=== PATIENT | female | born 1970 | race Caucasian/White ===

== ENCOUNTER 2021-09-08 05:48 | Day surgery (SDC) | payer MEDICAID ==
[~2021-09-08] VITALS: Ht 167.6 cm; Wt 97.7 kg
[~2021-09-08 05:48] MED LIST: BENA20TA82 PO; HUM10VIA SQ; METF-1203 PO; PRAV10TA39 PO; famotidine 20mg tablet PO ONE; ringers solution, lacted 1,000 ML IV SCH
[2021-09-08 06:00] VITALS: BP 150/80
[2021-09-08] MEDS ORDERED: clindamycin-Cleocin 900mg/D5W 50 ML IV ONE (06:00)
[2021-09-08] MEDS ORDERED: BUPIVAcaine/PF 2.5mg/ml (0.25%) 10ml vial ONE ×2 (06:43→07:23)
[2021-09-08 07:00] LABS: BASOPHILS # (AUTO) 0.1 X10'3 (0-0.2); BASOPHILS % (AUTO) 0.8 % (0-1); EOSINOPHILS # (AUTO) 0.2 X10'3 (0-0.9); EOSINOPHILS % (AUTO) 2.4 % (0-6); LYMPHOCYTES # (AUTO) 4.1 X10'3 (1.1-4.8); LYMPHOCYTES % (AUTO) 49.6 % (21-51); MEAN CORPUSCULAR HEMOGLOBIN 29.7 PG (27.0-31.0); MEAN CORPUSCULAR HGB CONC 34.2 g/dL (33.0-36.5); MEAN CORPUSCULAR VOLUME 86.7 FL (78-98); MEAN PLATELET VOLUME 6.8 FL (7.4-10.4); MONOCYTES # (AUTO) 0.6 X10'3 (0-0.9); MONOCYTES % (AUTO) 7.2 % (2-12); NEUTROPHILS # (AUTO) 3.3 X10'3 (1.8-7.7); PRE OP HEMATOCRIT 34.5 % (35.0-45.0); PRE OP HEMOGLOBIN 11.8 g/dL (12.0-16.0); PRE OP PLATELET COUNT 428 X10'3 (140-440); RED BLOOD COUNT 3.98 X10'6 (4.20-5.60); RED CELL DISTRIBUTION WIDTH 13.6 % (11.5-14.5)
[2021-09-08 07:10] LABS: ALBUMIN 3.7 G/DL (3.4-5.0); ALKALINE PHOSPHATASE 60 IU/L (46-116); BLOOD UREA NITROGEN 14 MG/DL (7-18); BUN/CREATININE RATIO 18.9 (6.6-38.0); CALCIUM 9.2 MG/DL (8.5-10.1); CHLORIDE 103 MMOL/L (99-107); CREATININE 0.74 MG/DL (0.40-0.90); PRE OP ALT 31 U/L (30-65); PRE OP ANION GAP 11 (8-16); PRE OP AST 16 U/L (10-37); PRE OP BILIRUB, TOTAL 0.2 MG/DL (0.0-1.0); PRE OP GLUCOSE 99 MG/DL (70-104); PRE OP POTASSIUM 3.9 MMOL/L (3.4-5.1); PRE OP SODIUM 141 MMOL/L (135-145); TOTAL PROTEIN 7.3 G/DL (6.4-8.2); eGFR 82 ML/MIN
[2021-09-08] MEDS ORDERED: LIDOcaine 0.5% (5mg/ml) 50ml vial ONE ×2 (07:33→09:06)
[2021-09-08] MEDS ORDERED: fentaNYL/PF 50MCG/1 ML 2ML syringe ONE (08:34)
[2021-09-08] MEDS ORDERED: midazolam 1 mg/ML 2ml injection ONE (08:35)
[2021-09-08] MEDS ORDERED: propofol inj 20 ML IV ONE (09:06)
[2021-09-08 09:17] VITALS: BP 180/92
--- NOTE | 2021-09-08 09:17 | NUR ---
Received from OR via [facility] , accompanied by Anesthesiologist RAGHAVENDRA and report given by Anesthesiolgist. PATIENT WITH 20G PIV IN LEFT UE RUNNING LR AT 100. DENIES PAIN. PATIENT WITH BILATERAL WRIST DRESSINGS THAT ARE ON CDI. NO DRAINAGE PRESENT. PATIENT + CAP REFILL IN ALL FINGERS. Addendum: 09/08/21 at 0961 by Shakeel Weaver RN, RN Amended: Links added.
[2021-09-08] MEDS ORDERED: morphine 2 MG/ML inj. syringe IV PRN (09:25)
[2021-09-08] MEDS ORDERED: morphine 4 MG/ML inj SYRINge IV PRN (09:25)
[2021-09-08] MEDS ORDERED: ringers solution, lacted 1,000 ML IV SCH (09:25)
[2021-09-08] MEDS ORDERED: ondansetron/PF 4mg/2ml inj IV PRN (09:25)
[2021-09-08] MEDS ORDERED: meperidine/PF 25mg/ml syringe IV PRN ×3 (09:25)
[2021-09-08] MEDS ORDERED: proCHLORperazine 10 MG/2 ml inj IV PRN (09:25)
[2021-09-08 09:27] VITALS: BP 179/99
[2021-09-08 09:30] VITALS: BP 179/99
[2021-09-08 09:40] VITALS: BP 182/104
--- NOTE | 2021-09-08 09:47 | NUR ---
ALL DISCHARGE CRITERIA HAS BEEN MET. VSS, PAIN AT A TOLERABLE LEVEL, VOIDING AND ABLE TO SAFELY AMBULATE AND TRANSFER SELF. IV TAKEN OUT WITHOUT ANY COMPLICATIONS. ALL DISCHARGE INSTRUCTIONS COVERED WITH PATIENT AND ALL QUESTIONS ANSWERED. PATIENT TAKEN OUT VIA WHEELCHAIR TO PERSONAL VEHICLE WHERE FAMILY/FRIEND DROVE PATIENT HOME. INSTRUCTED TO TAKE BP MEDS UPON LEAVING. PATIENT AGREES TO COMPLY Addendum: 09/08/21 at 0959 by Shakeel Weaver RN, RN Amended: Links added.
== END 2021-09-08 09:47 | disposition home or self-care (01) ==
LOC: PAS 05:48
PROVIDERS: ATTEND Orthopaedic Surgery Hand Surgery
DX: G56.03 Carpal tunnel syndrome, bilateral upper limbs (principal); E11.9 Type 2 diabetes mellitus without complications; I10 Essential (primary) hypertension; E66.9 Obesity, unspecified; Z68.34 Body mass index [BMI] 34.0-34.9, adult; Z20.822 Contact with and (suspected) exposure to COVID-19; Z79.899 Other long term (current) drug therapy; Z88.1 Allergy status to other antibiotic agents; Z88.8 Allergy status to other drugs, medicaments and biological substances; Z88.2 Allergy status to sulfonamides; Z90.49 Acquired absence of other specified parts of digestive tract; Z98.890 Other specified postprocedural states; Z90.710 Acquired absence of both cervix and uterus; Z79.4 Long term (current) use of insulin
CPT/HCPCS: 29848; 36415; 80053; 82948; 85025; 87635; C9803; J2250; J2704; J3010; J3490; J7030; J7120; Z7506; Z7512; 93005; A4215; A7000